=== PATIENT | female | born 1955 | race Native Hawaiian/Other Pacific Islander ===

== ENCOUNTER 2016-07-29 14:25 | Outpatient (CLI) | payer BC | END 2016-07-29 19:26 | disposition home or self-care (01) | LOC: MAMMO 14:25 | DX: Z12.31 Encounter for screening mammogram for malignant neoplasm of breast (principal) | CPT/HCPCS: G0202-TC ==

== ENCOUNTER 2016-09-01 15:00 | Emergency (ER) | payer BC ==
[~2016-09-01] VITALS: Ht 170.2 cm; Wt 79.8 kg
[2016-09-01 15:51] LABS: PLATELET COUNT 293 K/uL (152-353)
[2016-09-01 16:07] LABS: POTASSIUM 3.7 mmol/L (3.6-5.2); SODIUM 137 mmol/L (136-145)
[2016-09-01 16:10] LABS: PARTIAL THROMBOPLASTIN TIME 22.3 SECONDS (24.5-33.6)
[2016-09-01 17:02] VITALS: BP 130/76; TEMP 98.1
== END 2016-09-01 17:04 | disposition home or self-care (01) ==
LOC: ED 15:00
PROVIDERS: Emergency Medicine
DX: J32.2 Chronic ethmoidal sinusitis (principal); T50.905A Adverse effect of unspecified drugs, medicaments and biological substances, initial encounter
CPT/HCPCS: 36415; 80053; 80307; 80320; 81000; 82550; 84484; 85027; 85610; 85730; 93005; 96360; 99284; G0479

== ENCOUNTER 2016-09-30 07:57 | Outpatient (CLI) | payer BC ==
[2016-09-30 08:24] LABS: POTASSIUM 4.5 mmol/L (3.6-5.2); SODIUM 136 mmol/L (136-145)
== END 2016-09-30 19:43 | disposition home or self-care (01) ==
LOC: CT 07:57
PROVIDERS: Urology
DX: C64.9 Malignant neoplasm of unspecified kidney, except renal pelvis (principal)
CPT/HCPCS: 36415; 80053; Q9963

== ENCOUNTER 2017-09-29 13:06 | Outpatient (CLI) | payer BC | END 2017-09-29 21:33 | disposition home or self-care (01) | LOC: MAMMO 13:06 | DX: Z12.31 Encounter for screening mammogram for malignant neoplasm of breast (principal) ==

== ENCOUNTER 2019-05-03 09:45 | Outpatient (CLI) | payer OTHER | END 2019-05-03 19:24 | disposition home or self-care (01) | LOC: MAMMO 09:45 | DX: Z12.31 Encounter for screening mammogram for malignant neoplasm of breast (principal) ==

== ENCOUNTER 2019-06-21 10:11 | Outpatient (CLI) | payer OTHER | END 2019-06-21 20:51 | disposition home or self-care (01) | LOC: US 10:11 | DX: R10.9 Unspecified abdominal pain (principal) ==

== ENCOUNTER 2019-07-19 10:03 | Outpatient (CLI) | payer OTHER | END 2019-07-19 21:49 | disposition home or self-care (01) | LOC: CT 10:03 | DX: N20.0 Calculus of kidney (principal) | CPT/HCPCS: 36415; 82565; 84520; Q9963 ==

== ENCOUNTER 2020-05-17 09:26 | Outpatient (CLI) | payer OTHER | END 2020-05-17 23:22 | disposition home or self-care (01) | LOC: US 09:26 | DX: C64.9 Malignant neoplasm of unspecified kidney, except renal pelvis (principal); R31.0 Gross hematuria; Z12.31 Encounter for screening mammogram for malignant neoplasm of breast ==

== ENCOUNTER 2021-01-01 08:53 | Outpatient (CLI) | payer OTHER | END 2021-01-01 19:55 | disposition home or self-care (01) | LOC: LABW 08:53 | DX: R68.82 Decreased libido (principal); R53.83 Other fatigue; N95.8 Other specified menopausal and perimenopausal disorders; E55.9 Vitamin D deficiency, unspecified | CPT/HCPCS: 36415; 82626; 82670; 84144; 84402; 84481 ==

== ENCOUNTER 2021-04-16 14:45 | Outpatient (CLI) | payer OTHER | END 2021-04-16 20:10 | disposition home or self-care (01) | LOC: CT 14:45 | PROVIDERS: ATTEND Specialist | DX: R31.0 Gross hematuria (principal) ==

== ENCOUNTER 2021-05-10 08:51 | Outpatient (CLI) | payer OTHER ==
[2021-05-10 09:21] LABS: PLATELET COUNT 300 K/uL (152-353)
[2021-05-10 09:53] LABS: POTASSIUM 4.6 mmol/L (3.6-5.2)
== END 2021-05-10 18:53 | disposition home or self-care (01) ==
LOC: RESP 08:51
PROVIDERS: ATTEND Specialist
DX: R31.0 Gross hematuria (principal)
CPT/HCPCS: 36415; 80048; 85027; 93005

== ENCOUNTER 2021-05-21 14:42 | Outpatient (CLI) | payer OTHER | END 2021-05-21 19:27 | disposition home or self-care (01) | LOC: MAMMO 14:42 | PROVIDERS: ATTEND Nurse Practitioner Family | DX: Z12.31 Encounter for screening mammogram for malignant neoplasm of breast (principal) ==

== ENCOUNTER 2022-02-18 15:00 | Outpatient (CLI) | payer OTHER, MEDICARE | END 2022-02-18 19:02 | disposition home or self-care (01) | LOC: RAD 15:00 | PROVIDERS: ATTEND Nurse Practitioner Family | DX: R05.1 Acute cough (principal) ==

== ENCOUNTER 2022-04-02 15:38 | Outpatient (CLI) | payer OTHER, MEDICARE | END 2022-04-02 19:40 | disposition home or self-care (01) | LOC: CT 15:38 | PROVIDERS: ATTEND Nurse Practitioner Family | DX: R10.30 Lower abdominal pain, unspecified (principal); R31.9 Hematuria, unspecified ==

== ENCOUNTER 2022-08-06 10:24 | Outpatient (CLI) | payer OTHER, MEDICARE | END 2022-08-06 19:16 | disposition home or self-care (01) | LOC: US 10:24 | PROVIDERS: ATTEND Orthopaedic Surgery | DX: M25.561 Pain in right knee (principal); M25.461 Effusion, right knee; M23.351 Other meniscus derangements, posterior horn of lateral meniscus, right knee; Z47.89 Encounter for other orthopedic aftercare ==

== ENCOUNTER 2022-10-04 12:57 | Outpatient (CLI) | payer OTHER, MEDICARE | END 2022-10-04 19:18 | disposition home or self-care (01) | LOC: US 12:57 | PROVIDERS: ATTEND Nurse Practitioner Family | DX: R07.89 Other chest pain (principal); Z82.49 Family history of ischemic heart disease and other diseases of the circulatory system; E78.49 Other hyperlipidemia; R42 Dizziness and giddiness; Z13.820 Encounter for screening for osteoporosis; N95.8 Other specified menopausal and perimenopausal disorders ==

== ENCOUNTER 2022-12-10 08:55 | Outpatient (CLI) | payer OTHER, MEDICARE | END 2022-12-10 19:06 | disposition home or self-care (01) | LOC: US 08:55 | PROVIDERS: ATTEND Nurse Practitioner Family | DX: R10.11 Right upper quadrant pain (principal); K80.20 Calculus of gallbladder without cholecystitis without obstruction ==

== ENCOUNTER 2023-01-06 09:56 | Outpatient (CLI) | payer OTHER, MEDICARE | END 2023-01-06 18:56 | disposition home or self-care (01) | LOC: NM 09:56 | PROVIDERS: ATTEND Nurse Practitioner Family | DX: K80.20 Calculus of gallbladder without cholecystitis without obstruction (principal); R93.2 Abnormal findings on diagnostic imaging of liver and biliary tract | CPT/HCPCS: A9537 ==